=== PATIENT | male | born 1955 | race Caucasian/White ===

== ENCOUNTER 2023-02-27 06:23 | Day surgery (SDC) | payer MEDICARE, SELFPAY ==
[2023-02-27] VITALS (9 sets, daily range): BP systolic 125–153; BP diastolic 72–82; PULSE 70–84; RESP 15–18; TEMP 36.4–36.7; O2SAT 95–100; BMI 30.4
[2023-02-27] MEDS: BUPIVACAINE 0.5% 30 ML INJECTION (07:35)
--- NOTE | 2023-02-27 08:08 | P.ORPRC_ITS ---
Procedure Note Date of procedure: 02/27/23 Procedure: PREOPERATIVE DIAGNOSIS: 1. Left middle trigger digit POSTOPERATIVE DIAGNOSIS: 1. Left middle trigger digit PROCEDURE: 1. Left middle trigger (A1 maren) release SURGEON: Caleb Thompson MD. SUPERVISOR ERECTION SHOP: Lucinda Escobedo P.A.-C. Of note, an digital assistant was critical for this case to aid in patient positioning, tissue retraction, limb manipulation/positioning, and closure. ANESTHESIA: Local anesthetic IMPLANTS: None TOURNIQUET: 6 minutes at 200 mmHg COMPLICATIONS: None evident INDICATIONS: The patient is a pleasant 68-year-old male with history of left middle finger triggering. DESCRIPTION OF PROCEDURE: Patient was seen preoperatively and operative site was marked. Patient was then brought to the operating room placed in supine position on the OR table. A tourniquet was placed on the patient's left arm and left upper extremity was prepped and draped in usual sterile fashion. A surgical time-out was performed confirming patient name, procedure, and location. The subcutaneous tissues overlying the left middle finger A1 maren were in jected with combination of 1% lidocaine, 0.25% bupivacaine. Operative extremity was then elevated and exsanguinated with an Esmarch, and tourniquet was inflated to 200 mmHg. A skin incision measuring approximately 1 cm was made longitudinally over the A1 maren of the left middle finger. Blunt dissection was used to dissect through subcutaneous tissues. The underlying flexor tendons and A1 maren were identified and retractors were used to protect the neurovascular structures. The A1 maren was then released using a tenotomy scissor. After complete release of the A1 maren, the patient was asked to flex and extend their fingers, and no active triggering was noted. Tourniquet was then released and hemostasis was achieved with bipolar electrocautery. Total tourniquet time was 6 minutes. Wound was the irrigated with normal saline. Skin incision was closed with 4-0 nylon horizontal mattress sutures, and a sterile dressing was applied. Patient was then transferred to the recovery room in stable condition. POSTOPERATIVE PLAN: 1. Patient will be discharged to home day of surgery. 2. They were given instructions for wound care and finger range of motion exercises. 3. Return to the clinic for follow-up evaluation in 10-14 days for wound check and suture removal. Condition: stable Disposition: same day
== END 2023-02-27 08:22 | disposition home or self-care (01) ==
PROVIDERS: PCP Family Medicine; Visit Provider Orthopaedic Surgery
PROC: (CPT 26055; principal; 2023-02-27 07:30)
DX: M65.332 Trigger finger, left middle finger (principal)
CPT/HCPCS: 26055; J3490

== ENCOUNTER 2024-02-29 08:11 | Outpatient (CLI) | payer MEDICARE, SELFPAY ==
--- OUTSIDE RECORDS SUMMARY | 2024-03-02 03:36 | XMS_ITS | Clinical Summary ---
Author Organization [facility] er Address [address] [place] [address] Care Team Providers Care Trust Operations Assistant Name Role Phone None, Pcp Primary Care Provider Unavailabl e Allergies Active Allergy Reactions Criticality Noted Date Comments Cefuroxime 02/16/2007 Statins Other (see comments) 02/17/2024 jaden Muñoz Medications Medication Sig Dispensed Refills Start Date End Date Status finasteride (PROSCAR) 5 MG tablet Take 1 tablet every day by oral route. 12/30/2023 Active lisinopril (ZESTRIL) 20 MG tablet Take 1 tablet (20 mg total) by mouth 1 (one) time each day Active pantoprazole (PROTONIX) 40 MG EC tablet Take 1 tablet (40 mg total) by mouth 1 (one) time each day Active predniSONE (DELTASONE) 20 MG tablet TAKE TWO TABLETS BY MOUTH EVERY DAY FOR GOUT FLARE Active tamsulosin (FLOMAX) 0.4 MG 24 hr capsule Take 1 capsule by mouth daily as directed. 01/18/2024 Active venlafaxine XR (EFFEXOR-XR) 37.5 MG 24 hr capsule Take 1 capsule (37.5 mg total) by mouth 1 (one) time each day Active Encounters Date Type Department Care Team Description 02/17/2024 8:15 AM CDT Office Visit [facility] [address] [place] [address] Rosana Marshall MD Skin cancer screening (Primary Dx); Nevus; Seborrheic keratosis; Maria angioma from Last 3 Months Social History Tobacco Use Types Packs/Day Years Used Date Smoking Tobacco: Never Smokeless Tobacco: Never Tobacco Cessation:Counseling Given: Not Answered Sex and Gender Information Value Date Recorded Sex Assigned at Not on file Gender Identity Not on file Sexual Orientation Not on file Last Filed Vital Signs Vital Sign Reading Time Taken Comments Blood Pressure 151/82 02/17/2024 8:12 AM CDT Pulse 81 02/17/2024 8:10 AM CDT Temperature 36.7 ??C (98 ??F) 02/17/2024 8:10 AM CDT Respiratory Rate 20 02/17/2024 8:10 AM CDT Oxygen Saturation - - Inhaled Oxygen Concentration - - Weight - - Height - - Body Mass Index - - Plan of Treatment Health Maintenance Due Date Last Done Comments CT Colonography 1956 FIT-DNA 1956 Sigmoidoscopy 1955 iFOBT 1955 Pneumococcal Vaccine: 65+ Years (1 of 2 - PCV) 02/11/1962 Fall Risk Performed 02/11/1974 Medicare Annual Wellness Visit (AWV) 02/11/1974 Zoster Vaccines (1 of 2) 02/11/1975 COVID-19 Vaccine (3 - Pfizer risk series) 03/23/2021 02/23/2021, 02/02/2021 Colonoscopy 08/13/2022 08/13/2012 Colorectal Cancer Screening 08/13/2022 Influenza Vaccine (Season Ended) 2024 10/10/2019, 07/19/2018, 08/26/2017, Additional history exists DTaP,Tdap,and Td Vaccines (4 - Td or Tdap) 12/13/2031 12/12/2021, 05/22/2011, 04/09/2007, Additional history exists HPV Vaccines Aged Out No longer eligi ble based on patient's age to complete this topic Care Teams Trust Operations Assistant Relationship Specialty Start Date End Date None, Pcp [address] [facility] [place] [id number] PCP - General Cruise Guide 12/30/23
--- OUTSIDE RECORDS SUMMARY | 2024-03-02 03:36 | XMS_ITS | Data Portability ---
Author Organization [facility] Address [address] [place] [address] Care Team Providers Care Vibrator Operator Name Role Phone ENRIQUE JANET Referring Provider [phone] Assessment Encounter Date Assessment Date Assessment LastModified by Organization Details LastModified Time 09/03/2021 09/03/2021 66 yo M with history of nephrolithiasis presenting with recent episode of gross hematuria. [email or web address] Not available 09/03/2021 10:32:56 Plan of Treatment Reminders Order Date Submit Date Provider Last Modified By Organization Details Last Modified Time Details Appointments None recorde d. Lab PSA, serum or plasma 2023 024 [email or web address] [facility], [address], [place], [address], 4 16:39:12 PSA, total, serum or plasma 2023 024 [email or web address] [facility], [address], [place], [address], 4 11:24:14 PSA, serum or plasma 2023 024 [email or web address] [facility], [address], [place], [address], 4 10:27:09 PSA, serum or plasma 2022 023 [email or web address] [facility], [address], [place], [address], 3 12:02:41 urinaly sis, dipstic k 2022 023 [email or web address] [facility], [address], [place], [address], 3 12:02:45 PSA, total, serum or plasma 2022 023 [email or web address] [facility], [address], [place], [address], 3 09:29:38 PSA, total, serum or plasma 2022 023 teresita Drake, [address], [place], [address], 3 11:32:05 PSA, total, serum or plasma 2021 022 [facility], [address], [place], [address], 2 14:55:19 PSA, serum or plasma - Needed in late May. early Jun. 2021 022 [facility], [address], [place], [address], 2 07:49:15 PSA, serum or plasma 2021 022 [email or web address] Not available 2 10:00:57 stone analysi s panel 2021 022 [facility], [address], [place], [address], 2 11:09:31 urinaly sis, dipstic k 2021 022 [email or web address] Not available 10:00:57 urinaly sis, dipstic k 2020 021 [email or web address] Not available 1 10:10:17 Referral None recorde d. Procedures None recorde d. Surgeries None recorde d. Imaging MRI, prostat e, w/wo contras t 2023 024 [email or web address] [facility], [address], [address], [place], [address], 4 13:13:49 XR, kidney + ureter + bladder 2022 023 [email or web address] [facility] , [address], [place], [address], 3 13:11:50 CT, abdomen + pelvis, w/o contras t 2021 022 [email or web address] Not available 14:54:47 CT, abdomen + pelvis, w/o contras t 2021 022 [email or web address] Not available 2 16:39:29 CT, urogram 2020 021 [facility], [address], [place], [address], 2 11:06:39 Medication Orders finaste ride 5 mg tablet 2023 024 [email or web address], [address], [place], [place], [id number], 4 11:33:08 ciprofl oxacin 500 mg tablet [email or web address] [id number], [address] [place], [address], 2 11:20:45 Flomax 0.4 mg capsule 2020 022 [email or web address] [id number], [address] [facility], [place], [address], 2 16:13:35 Patient TargetsNo targets recorded. Patient Instructions Encounter Date Encounter Id Patient Instructions Last Modified By Organization Details Last Modified Time 10/15/2021 [id number] Kidney stone prevention is important given high recurrence rate. 50% or more of first time stone formers will have recurrence of kidney stones in the next 5-10 years. The majority of kidney stones are composed of calcium or uric acid. Stone prevention methods discussed includin. Drink more water - keep urine clear and increase daily urine output to 2.0-2.5 L/day 2. Incorporate more citrate - lemon juice to water 3. Monitor/restrict sodium intake (<2 g/day) 4. Get enough calcium (800-1200 mg/day) 5. Moderate oxalate consumption (peanuts, leafy green vegetables, berries, etc.) 6. Moderate animal protein intake (8-12 oz/day) [email or web address] Not available 10/14/2021 19:21:49 09/03/2021 [id number] Kidney stone prevention is important given high recurrence rate. 50% or more of first time stone formers will have recurrence of kidney stones in the next 5-10 years. The majority of kidney stones are composed of calcium or uric acid. Stone prevention methods discussed includin. Drink more water - keep urine clear and increase daily urine output to 2.0-2.5 L/day 2. Incorporate more citrate - lemon juice to water 3. Monitor/restrict sodium intake (<2 g/day) 4. Get enough calcium (800-1200 mg/day) 5. Moderate oxalate consumption (peanuts, leafy green vegetables, berries, etc.) 6. Moderate animal protein intake (8-12 oz/day) [email or web address] Not available 09/01/2021 12:21:11 Reason for Referral None Reported. Results Created Date Observation Date Name Description Value Unit Range Abnormal Flag LastModifiedBy Organization Detail LastModifiedTime 09/03/2009/03/2021 urina lysis , dipst ick pH-Status 5.5 Not Available [facility] [address], [place], [address], 09/03/2021 09:30:56 09/03/20 09/03/2021 urina lysis , dipst ick Nitrates-Sta tus negati ve Not Available [facility] [address], [place], [address], 09/03/2021 09:30:56 09/03/20 21 09/03/2021 urina lysis , dipst ick Blood-Status Modera te Not Available [facility] [address], [place], [address], 09/03/2021 09:30:56 09/03/20 21 09/03/2021 urina lysis , dipst ick Leuko-Status Negati ve Not Available [facility] [address], [place], [address], 09/03/2021 09:30:56 09/03/20 21 09/03/2021 urina lysis , dipst ick Specimen Type Voided Not Available [facility] [address], [place], [address], 09/03/2021 09:30:56 10/15/1910/19/2021 STONE JENNIE SIS source Commen t Not Available [facility] ([facility]) [address], [place], [address], 10/19/2021 11:09:31 10/15/1910/19/2021 STONE JENNIE SIS color Brown Not Available [facility] ([facility]) [address], [place], [address], 10/19/2021 11:09:31 10/15/1910/19/2021 STONE JENNIE SIS size 3x2 mm Not Available [facility] ([facility]) [address], [place], [address], 10/19/2021 11:09:31 10/15/19 22 10/19/2021 STONE JENNIE SIS weight 12 mg Not Available [facility] ([facility]) [address] [place], [address], 10/19/2021 11:09:31 10/15/19 22 10/19/2021 STONE JENNIE SIS composition Commen t Not Available [facility] ([facility]) [address] [place], [address], 10/19/2021 11:09:31 10/15/19 22 10/19/2021 STONE JENNIE SIS calcium oxalate monohydrate 100 % Not Available [facility] ([facility]) [address] [place], [address], 10/19/2021 11:09:31 10/15/19 22 10/19/2021 STONE JENNIE SIS calcium oxalate dihydrate TECHNICAL SERVICES LIBRARIAN Not Available [facility] ([facility]) [address] [place], [address], 10/19/2021 11:09:31 10/15/19 22 10/19/2021 STONE JENNIE SIS hydroxyapati te TECHNICAL SERVICES LIBRARIAN Not Available [facility] ([facility]) [address] [place], [address], 10/19/2021 11:09:31 10/15/19 22 10/19/2021 STONE JENNIE SIS carbonate apatite TECHNICAL SERVICES LIBRARIAN Not Available [facility] ([facility]) [address] [place], [address], 10/19/2021 11:09:31 10/15/19 22 10/19/2021 STONE JENNIE SIS cahpo4 (brushite) TECHNICAL SERVICES LIBRARIAN Not Available [facility] ([facility]) [address] [place], [address], 10/19/2021 11:09:31 10/15/19 22 10/19/2021 STONE JENNIE SIS calcium phosphate TECHNICAL SERVICES LIBRARIAN Not Available [facility] ([facility]) [address] [place], [address], 10/19/2021 11:09:31 10/15/19 22 10/19/2021 STONE JENNIE SIS calcium carbonate TECHNICAL SERVICES LIBRARIAN Not Available [facility] ([facility]) [address] [facility], [place], [address], 10/19/2021 11:09:31 10/15/19 22 10/19/2021 STONE JENNIE SIS mg nh4 PO4 (struvite) TECHNICAL SERVICES LIBRARIAN Not Available [facility] ([facility]) [address] [place], [address], 10/19/2021 11:09:31 10/15/19 22 10/19/2021 STONE JENNIE SIS mghpo4 (newberyite) TECHNICAL SERVICES LIBRARIAN Not Available [facility] ([facility]) [address] [place], [address], 10/19/2021 11:09:31 10/15/19 22 10/19/2021 STONE JENNIE SIS uric acid TECHNICAL SERVICES LIBRARIAN Not Available [facility] ([facility]) [address] [place], [address], 10/19/2021 11:09:31 10/15/19 22 10/19/2021 STONE JENNIE SIS uric acid dihydrate TECHNICAL SERVICES LIBRARIAN Not Available [facility] ([facility]) [address] [place], [address], 10/19/2021 11:09:31 10/15/19 22 10/19/2021 STONE JENNIE SIS ammonium acid urate TECHNICAL SERVICES LIBRARIAN Not Available [facility] ([facility]) [address] [place], [address], 10/19/2021 11:09:31 10/15/19 22 10/19/2021 STONE JENNIE SIS sodium acid urate TECHNICAL SERVICES LIBRARIAN Not Available [facility] ([facility]) [address] [place], [address], 10/19/2021 11:09:31 10/15/19 22 10/19/2021 STONE JENNIE SIS 2,8 dihydroxyade nine TECHNICAL SERVICES LIBRARIAN Not Available [facility] ([facility]) [address] [facility] [facility], [place], [address], 10/19/2021 11:09:31 10/15/19 22 10/19/2021 STONE JENNIE SIS xanthine TECHNICAL SERVICES LIBRARIAN Not Available [facility] ([facility]) [address] [facility], [place], [address], 10/19/2021 11:09:31 10/15/19 22 10/19/2021 STONE JENNIE SIS cystine TECHNICAL SERVICES LIBRARIAN Not Available [facility] ([facility]) [address] [facility], [place], [address], 10/19/2021 11:09:31 10/15/19 22 10/19/2021 STONE JENNIE SIS cholesterol TECHNICAL SERVICES LIBRARIAN Not Available [facility] ([facility]) [address] [facility], [place], [address], 10/19/2021 11:09:31 10/15/19 22 10/19/2021 STONE JENNIE SIS calcium bilirubinate TECHNICAL SERVICES LIBRARIAN Not Available [facility] ([facility]) [address] [facility], [place], [address], 10/19/2021 11:09:31 10/15/19 22 10/19/2021 STONE JENNIE SIS bilirubin TECHNICAL SERVICES LIBRARIAN Not Available [facility] ([facility]) [address] [facility], [place], [address], 10/19/2021 11:09:31 10/15/19 22 10/19/2021 STONE JENNIE SIS calcium palmitate TECHNICAL SERVICES LIBRARIAN Not Available [facility] ([facility]) [address] [facility], [place], [address], 10/19/2021 11:09:31 10/15/19 22 10/19/2021 STONE JENNIE SIS calcium stearate TECHNICAL SERVICES LIBRARIAN Not Available [facility] ([facility]) [address] [facility], [place], [address], 10/19/2021 11:09:31 10/15/19 22 10/19/2021 STONE JENNIE SIS triamterene TECHNICAL SERVICES LIBRARIAN Not Available [facility] ([facility]) [address] [facility], [place], [address], 10/19/2021 11:09:31 10/15/19 22 10/19/2021 STONE JENNIE SIS drug or metabolite TECHNICAL SERVICES LIBRARIAN Not Available [facility] ([facility]) [address] [facility], [place], [address], 10/19/2021 11:09:31 10/15/19 22 10/19/2021 STONE JENNIE SIS dried blood TECHNICAL SERVICES LIBRARIAN Not Available [facility] ([facility]) [address] [facility], [place], [address], 10/19/2021 11:09:31 10/15/19 22 10/19/2021 STONE JENNIE SIS cellular material TECHNICAL SERVICES LIBRARIAN Not Available [facility] ([facility]) [address] [facility], [place], [address], 10/19/2021 11:09:31 10/15/19 22 10/19/2021 STONE JENNIE SIS other component(s) TECHNICAL SERVICES LIBRARIAN Not Available [facility] ([facility]) [address] [facility] [facility], [place], [address], 10/19/2021 11:09:31 10/15/19 22 10/19/2021 STONE JENNIE SIS comment TECHNICAL SERVICES LIBRARIAN Not Available [facility] ([facility]) [address] [facility], [place], [address], 10/19/2021 11:09:31 10/15/19 22 10/19/2021 STONE JENNIE SIS comment TECHNICAL SERVICES LIBRARIAN Not Available [facility] ([facility]) [address] [facility], [place], [address], 10/19/2021 11:09:31 10/15/19 22 10/19/2021 STONE JENNIE SIS photo Commen t Not Available [facility] ([facility]) [address] [facility], [place], [address], 10/19/2021 11:09:31 10/15/19 22 10/19/2021 STONE JENNIE SIS comment: Thi bassett Not Available [facility] ([facility]) [address] [facility], [place], [address], 10/19/2021 11:09:31 10/15/19 22 10/19/2021 STONE JENNIE SIS please note: Thi bassett Not Available [facility] ([facility]) [address] [facility], [place], [address], 10/19/2021 11:09:31 10/15/19 22 10/19/2021 STONE JENNIE SIS disclaimer: Thi bassett Not Available [facility] ([facility]) [address] [facility], [place], [address], 10/19/2021 11:09:31 10/15/19 22 10/19/2021 STONE JENNIE SIS pdf . Not Available [facility] ([facility]) [address] [facility], [place], [address], 10/19/2021 11:09:31 10/15/19 22 10/15/2021 urina lysis , dipst ick pH-Status 5.5 Not Available [facility] [address], [place], [address], 10/15/2021 09:59:55 10/15/19 22 10/15/2021 urina lysis , dipst ick Nitrates-Sta tus negati ve Not Available [facility] [address], [place], [address], 10/15/2021 09:59:55 10/15/19 22 10/15/2021 urina lysis , dipst ick Blood-Status Small Not Available [facility] [address], [place], [address], 10/15/2021 09:59:55 10/15/19 22 10/15/2021 urina lysis , dipst ick Leuko-Status Trace Not Available [facility] [address], [place], [address], 10/15/2021 09:59:55 10/15/1910/15/2021 urina lysis , dipst ick Specimen Type Voided Not Available [facility] [address], [place], [address], 10/15/2021 09:59:55 10/15/1910/15/2021 PSA, serum or plasm a PSA, Total 12.9 ng/mL Not Available [facility] [address], [place], [address], 10/15/2021 09:59:35 07/06/2007/06/2023 urina lysis , dipst ick Color-Status Yellow Not Available [facility] [address], [place], [address], 07/06/2023 12:02:15 07/06/2007/06/2023 urina lysis , dipst ick pH-Status 6.0 Not Available [facility] [address], [place], [address], 07/06/2023 12:02:15 07/06/2007/06/2023 urina lysis , dipst ick Nitrates-Sta tus negati ve Not Available [facility] [address], [place], [address], 07/06/2023 12:02:15 07/06/2007/06/2023 urina lysis , dipst ick Blood-Status Trace Not Available [facility] [address], [place], [address], 07/06/2023 12:02:15 07/06/2007/06/2023 urina lysis , dipst ick Leuko-Status Negati ve Not Available [facility] [address], [place], [address], 07/06/2023 12:02:15 07/06/2007/06/2023 PSA, serum or plasm a PSA 4.2 ng/mL 0-4.0 Not Available [facility] [address], [place], [address], 07/06/2023 11:38:59 10/07/19 24 10/07/2023 PSA, serum or plasm a PSA 4.4ng/ ml 0-4.0 Not Available [facility] [address], [place], [address], 10/07/2023 10:08:48 12/30/19 24 12/30/2023 PSA, serum or plasm a PSA 4.6 ng/mL 0-4.0 NG/mL Not Available [facility] [address], [place], [address], 12/30/2023 16:38:51 09/03/20 21 09/03/2021 bladd er scan (PROC ) No observ ation record ed. BARCODE Not Available 09/03/2021 17:28:46 09/25/19 CT, urogr am No observ ation record ed. [facility] [address] [place] [address], [place], [address], 09/25/2021 11:06:39 10/16/19 22 10/15/2021 bladd er scan (PROC ) No observ ation record ed. BARCODE Not Available 10/16/2021 15:33:43 06/19/20 22 06/18/2022 CT, abdom en + pelvi s, w/o contr ast No observ ation record ed. Not Available 06/19/2022 21:50:12 07/06/20 23 07/06/2023 CT, abdom en + pelvi s, w/o contr ast EXAM: CT, ABDOME N + PELVIS , WITHOU T CONTRA ST LOCATI ON: [employer] [facility] DATE: 2022 INDICA TION: Nephro lithia sis. COMPAR SHANI: CT of the abdome n and pelvis perfor med 2021. TECHNI QUE: CT scan of the abdome n and pelvis was perfor med withou t IV contra st. Multip lanar reform ats were obtain ed. Dose reduct ion techni ques were used. CONTRA ST: None. FINDIN GS: LOWER CHEST: Kirby ry artery calcif icatio n. HEPATO BILIAR Y: Hepati c steato sis. PANCRE : Normal . SPLEEN : Normal . ADRENA L GLANDS : Normal . RIGHT KIDNEY /URETE R: There are two nonobs tructi ng stones in the upper pole of the right kidney , unchan ged, with the larges t measur ing 0.3 cm. No ureter al calcul i. No hydron ephros is. LEFT KIDNEY /URETE R: Puncta te 0.1 cm nonobs tructi ng stone in the upper pole of the left kidney was not visibl e on the previo us exam. No ureter al calcul i. No hydron ephros is. BLADDE R: No bladde r stones or masses are identi fied. BOWEL: Rectos igmoid anasto mosis. Postop erativ e change s are also noted in the ileoce adry region . Coloni c divert iculos is, withou t eviden ce for divert iculit is. No bowel obstru ction. LYMPH NODES: No lympha denopa thy. VASCUL ATURE: Modera te athero sclero tic aortoi liac calcif icatio n. PELVIC ORGANS : There is marked prosta tic enlarg ement. The prosta te gland measur es 6 cm transv erse. MUSCUL OSKELE JAVIER: There are two small fat-co ntaini ng midlin e ventra l hernia s in the suprau mbilic al region , unchan ged. Degene rative change s in the visual ized thorac olumba r spine. Mild compre ssion of the L2 verteb ral body, unchan ged. IMPRES DYAN: 1. Two small nonobs tructi ng stones in the right kidney are unchan ged. 2. A puncta te 0.1 cm stone in the upper pole of the left kidney was not visibl e on the previo us exam. 3. No ureter al calcul i or eviden ce for urinar y obstru ction. 4. Marked prosta tic enlarg ement. 5. Hepati c steato sis. This report was electr onical ly interp reted by: Isauro salgado MD on 2022 at 12:21 [facility] [address], [place], [address], 09/03/2023 15:27:06 10/19/19 24 10/17/2023 MRI, prost ate, w/wo contr ast No observ ation record ed. [email or web address] [facility] [address], [place], [address], 11/06/2023 09:04:06 Result Notes Documentation Provider Name and Address Organization Details Recorded Time Ct, Abdomen + Pelvis, W/o Contrast : EXAM: CT, ABDOMEN + PELVIS, WITHOUT CONTRAST LOCATION: [facility] DATE: 07/06/2023 INDICATION: Nephrolithiasis. COMPARISON: CT of the abdomen and pelvis performed 06/18/2022. TECHNIQUE: CT scan of the abdomen and pelvis was performed without IV contrast. Multiplanar reformats were obtained. Dose reduction techniques were used. CONTRAST: None. FINDINGS: LOWER CHEST: Coronary artery calcification. HEPATOBILIARY: Hepatic steatosis. PANCREAS: Normal. SPLEEN: Normal. ADRENAL GLANDS: Normal. RIGHT KIDNEY/URETER: There are two nonobstructing stones in the upper pole of the right kidney, unchanged, with the largest measuring 0.3 cm. No ureteral calculi. No hydronephrosis. LEFT KIDNEY/URETER: Punctate 0.1 cm nonobstructing stone in the upper pole of the left kidney was not visible on the previous exam. No ureteral calculi. No hydronephrosis. BLADDER: No bladder stones or masses are identified. BOWEL: Rectosigmoid anastomosis. Postoperative changes are also noted in the ileocecal region. Colonic diverticulosis, without evidence for diverticulitis. No bowel obstruction. LYMPH NODES: No lymphadenopathy. VASCULATURE: Moderate atherosclerotic aortoiliac calcification. PELVIC ORGANS: There is marked prostatic enlargement. The prostate gland measures 6 cm transverse. MUSCULOSKELETAL: There are two small fat-containing midline ventral hernias in the supraumbilical region, unchanged. Degenerative changes in the visualized thoracolumbar spine. Mild compression of the L2 vertebral body, unchanged. IMPRESSION: 1. Two small nonobstructing stones in the right kidney are unchanged. 2. A punctate 0.1 cm stone in the upper pole of the left kidney was not visible on the previous exam. 3. No ureteral calculi or evidence for urinary obstruction. 4. Marked prostatic enlargement. 5. Hepatic steatosis. This report was electronically interpreted by: Fahad Alvares MD on 07/06/2023 at 12:21 Rai Aguillon MD [address] [facility],[address], [place], [address], [facility] 09/03/2023 15:27:06 Problems Name Status Onset Date Resolution Date Notes Provider Name and Address Organization Details Recorded Time Slowing of urinary stream Active 07/19/20 12 788.62 : SLOW STREAM Not Available [facility] 03/01/2020 02:00:48 Prostate specific antigen above reference range Active 07/19/20 12 790.93 : ELEVATED PSA Not Available [facility] 03/01/2020 02:00:48 Problem Notes None recorded. Procedures Surgical History Date Name Laterality Status Provider Name and Address Organization Details Recorded Time 12/30/19 24 JACQUARD LOOM FIXER/blood draw completed Isabella vaz [facility] 12/30/2023 16:39:11 07/06/20 23 Blood Draw/JACQUARD LOOM FIXER/PSA RESULTS completed Isabella vaz [facility] 07/06/2023 11:50:21 10/15/19 22 Bladder Scan completed Nellie vaz [facility] 10/15/2021 10:07:18 10/15/19 22 Blood Draw/JACQUARD LOOM FIXER/PSA RESULTS completed Nellie vaz [facility] 10/15/2021 09:59:29 09/03/20 21 CystoscopyMale completed IVET KELLY [address] [facility],[address], [place], [address], [place] [facility] 09/03/2021 10:32:38 09/03/20 Macrobid post cysto completed IVET KELLY [address] [facility],[address], [place], [address], [place] [facility] 09/03/2021 10:31:57 09/03/20 Bladder Scan completed Nellie vaz [facility] 09/03/2021 09:39:18 08/14/20 Colonoscopy completed Rai Aguillon MD [address] [facility],[address], [place], [address], [facility] 12/17/2021 11:22:27 Imaging Results Imaging Date Name Status LastModified by Organiz ation Details LastModified Time 09/03/2021 bladder scan (PROC) completed [facility] Information not available 09/03/2021 17:28:46 09/25/2021 CT, urogram completed [facility] [address] [place] [address], [place], [address], 09/25/2021 11:06:39 10/15/2021 bladder scan (PROC) completed [facility] Information not available 10/16/2021 15:33:43 06/18/2022 CT, abdomen + pelvis, w/o contrast completed Information not available 06/19/2022 21:50:12 07/06/2023 CT, abdomen + pelvis, w/o contrast completed [facility] [address] [facility] [address], [place], [address], 09/03/2023 15:27:06 10/17/2023 MRI, prostate, w/wo contrast completed [email or web address] [facility] [address] [facility] [address], [place], [address], 11/06/2023 09:04:06 Procedure Notes None recorded. Medical Equipment None Reported. Allergies No known drug allergies Medications Name Sig Start Date Stop Date Status Note LastModified by Organization Details LastModified Time venlafaxine ER 37.5 mg capsule,ext ended release 24 hr TAKE ONE CAPSULE BY MOUTH EVERY DAY active Not Available Not Available No t Available valacyclovi r 1 gram tablet TAKE ONE TABLET BY MOUTH THREE TIMES A DAY 12/17 completed Not Available Not Available Not Available hydrocodone 5 mg-acetamin ophen 325 mg tablet TAKE 1-2 TABLETS BY MOUTH EVERY 4-6 HOURS NEEDED 09/03 completed Not Available Not Available Not Available lisinopril 20 mg tablet TAKE ONE TABLET BY MOUTH EVERY DAY active Not Available Not Available No t Available prednisone 20 mg tablet TAKE TWO TABLETS BY MOUTH EVERY DAY FOR GOUT FLARE active Not Available Not Available No t Available metronidazo le 500 mg tablet TAKE ONE TABLET BY MOUTH THREE TIMES A DAY FOR 7 DAYS 10/15 completed Not Available Not Available Not Available ciprofloxac in 250 mg tablet TAKE 2 TABLETS BY MOUTH TWICE A DAY (ALREADY RECEIVED 3 OF THE 500MG TABLETS) 09/03 completed Not Available Not Available Not Available ciprofloxac in 500 mg tablet TAKE ONE TABLET BY MOUTH EVERY 12 HOURS . 12/17 completed Not Available Not Available Not Available tamsulosin 0.4 mg capsule Take 1 capsule by mouth daily as directed. 2023 active Not Available Not Available Not Avai lable pantoprazol e 40 mg tablet,paul yed release TAKE ONE TABLET BY MOUTH EVERY DAY active Not Available Not Available No t Available finasteride 5 mg tablet Take 1 tablet every day by oral route. 2023 active Not Available Not Available Not Avai lable amoxicillin 875 mg-potassiu m clavulanate 125 mg tablet TAKE 1 TABLET BY MOUTH TWICE DAILY 06/18 completed Not Available Not Available Not Available oxycodone 5 mg tablet 10/15 completed Not Available Not Available Not Available Vitals Date Recorded Body height Body mass index (BMI) Body weight Provider Name and Address Organization Details Last Updated DateTime 06/18/2022 172.72 cm 30.7 kg/m2 99321.66 g Harjit [facility] 06/18/2022 14:08:19 Date Recorded Body height Body mass index (BMI) Body weight Provider Name and Address Organization Details Last Updated DateTime 10/13/2022 172.72 cm 30.7 kg/m2 92411.66 g Rai Aguillon MD [address] [facility],[address], [place], [address], [facility] 10/13/2022 10:37:16 Date Recorded Body height Body mass index (BMI) Body weight Provider Name and Address Organization Details Last Updated DateTime 07/06/2023 172.72 cm 29.2 kg/m2 42002.74 g Rai Aguillon MD [address] [place] [address],[address] [address], [facility] 07/06/2023 11:37:50 Date Recorded Body height Provider Name an d Address Organization Details Last Updated DateTime 10/07/2023 172.[address] [facility] 10/07/2023 09:52:58 Date Recorded Body height Body mass index (BMI) Body weight Provider Name and Address Organization Details Last Updated DateTime 12/30/2023 172.72 cm 29.2 kg/m2 63033.[address] [facility] 12/30/2023 16:38:33 Date Recorded Body height Body mass index (BMI) Body weight Provider Name and Address Organization Details Last Updated DateTime 09/03/2021 172.72 cm 31.9 kg/m2 [address]604.[address] [facility] 09/03/2021 09:27:40 Date Recorded Body height Body mass index (BMI) Body weight Provider Name and Address Organization Details Last Updated DateTime 10/15/2021 172.72 cm 31.9 kg/m2 [address]28.[address] [facility] 10/15/2021 09:58:45 Date Recorded Body height Body mass index (BMI) Body weight Provider Name and Address Organization Details Last Updated DateTime 12/17/2021 172.72 cm 32.7 kg/m2 53824.36 g Rai Aguillon MD [address] [place] [address],[address], [address], [facility] 12/17/2021 11:20:12 Social History Question Answer Notes LastModified by Organizat ion Details LastModified Time Tobacco Smoking Status Never Smoker Nellie Story null, [facility] 09/03/2021 09:38:16 What Is Your Level Of Alcohol Consumption? None [email or web address] Information not available 09/03/2021 What Is Your Level Of Caffeine Consumption? None [email or web address] Information not available 10/07/2023 Are You Currently Employed? Yes Information not available 06/18/2022 Recreational Drug Use No Information not available 06/18/2022 What Was The Date Of Your Most Recent Tobacco Screening? 12/30/2023 [email or web address] Information not available 12/30/2023 What Is Your Relationship Status? Information not available 06/18/2022 Do You Use Any Illicit Or Recreational Drugs? No Information not available 12/17/2021 Sex: Male Functional Status None recorded. Mental Status None recorded. Family History Relationship Description Onset Age of this Age Resolved Age Notes Mother Family history of Hypertension Medical History Condition Response High Blood Pressure Y Kidney Stones Y Depression N Lung Disease N GERD/Acid Reflux N Sexually Transmitted Infection N Cancer N High Cholesterol N Diabetes N Bleeding Disorder N Heart Disease N Immunizations Vaccine Type Date Status Provider Name and Address Organization Details Recorded Time COVID-19, mRNA, LNP-S, PF, 30 mcg/0.3 mL dose 02/23/2021 completed Rai Aguillon MD [address] [place] [address], [phone], [facility] 12/17/2021 11:20:26 COVID-19, mRNA, LNP-S, PF, 30 mcg/0.3 mL dose 02/02/2021 completed Rai Aguillon MD [address] [place] [address], [phone], [facility] 12/17/2021 11:20:26 influenza, unspecified formulation 06/14/2012 completed Rai Aguillon MD [address] [place] [address],[address], [address], [facility] 07/06/2023 11:37:53 Tdap 04/09/2007 completed Rai Aguillon MD [address] [place] [address],[address], [address], [facility] 07/06/2023 11:37:53 Tdap 05/22/2011 completed Rai Aguillon MD [address] [place] [address],[address], [address], [facility] 07/06/2023 11:37:53 Td (adult), 2 Lf tetanus toxoid, preservative free, adsorbed 12/13/2003 completed Rai Aguillon MD [address] [place] [address],[address] [place] [address], [address], [facility] 07/06/2023 11:37:53 Influenza, split virus, quadrivalent, PF 10/10/2019 completed Rai Aguillon MD [address] [place] [address],[address], [address], [facility] 07/06/2023 11:37:53 Influenza, split virus, quadrivalent, PF 06/13/2015 completed Rai Aguillon MD [address] [place] [address],[address], [address], [facility] 07/06/2023 11:37:53 Influenza, split virus, quadrivalent, PF 07/19/2018 completed Rai Aguillon MD [address] [place] [address],[address], [address], [facility] 07/06/2023 11:37:53 Influenza, split virus, quadrivalent, PF 08/26/2017 completed Rai Aguillon MD [address] [place] [address],[address] [place] [address], [address], [facility] 07/06/2023 11:37:53 Influenza, split virus, quadrivalent, PF 09/09/2016 completed Rai Aguillon MD [address] [place] [address],[address], [address], [facility] 07/06/2023 11:37:53 Pneumococcal conjugate PCV 13 12/12/2021 completed Saundra vaz, [facility] 08/12/2023 09:13:13 Td (adult), 2 Lf tetanus toxoid, preservative free, adsorbed 12/12/2021 completed Saundra Allar null, [facility] 08/12/2023 09:13:13 pneumococcal polysaccharide PPV23 02/02/2023 completed Saundra Smith null, [facility] 08/12/2023 09:13:42 Past Encounters Encounter ID Performer Location Encounter Start Date Encounter Closed Date Diagnosis/Indication Diagnosis SNOMED-CT Code [id number] Arley Archibald MD [facility] [address] [place], [place] [address] 09/03/2021 08:48:30 09/11/2021 09:13:53 Blood in urine 31554950 Kidney stone 95503101 Benign pro static hyperplasia with outflow obstruction [id number] IVET KELLY [facility] [address] [place], [place] [address] 10/15/2021 09:12:33 10/16/2021 08:57:07 Calculus of kidney and ureter 687299921 Blood in urine 30943459 Lower urin mindy tract symptoms due to benign prostatic hypertrophy 18407658580550 Kidney stone 21183174 [id number] Rai Aguillon MD [facility] [address] [place], [place] [address] 12/17/2021 11:06:30 12/20/2021 16:48:24 Prostate specific antigen above reference range 004576521 Lower urin mindy tract symptoms due to benign prostatic hypertrophy 45860442853558 Kidney stone 57064822 [id number] Rai Aguillon MD [facility] [address] [place], [place] [address] 06/18/2022 13:41:52 06/19/2022 16:09:29 Prostate specific antigen above reference range 797911071 Kidney stone 55914361 Lower urin mindy tract symptoms due to benign prostatic hypertrophy [id number] Rai Aguillon MD [facility] [address] [place] [address] 10/13/2022 10:32:30 10/18/2022 17:49:37 Prostate specific antigen above reference range 567537600 Kidney stone 74304637 Lower urin mindy tract symptoms due to benign prostatic hypertrophy [id number] Rai Aguillon MD [facility] [address] [place] [id number] 07/06/2023 11:33:00 07/08/2023 10:19:27 Prostate specific antigen above reference range 839753584 Kidney stone 71610613 Lower urin mindy tract symptoms due to benign prostatic hypertrophy [id number] Rai Aguillon MD [facility] [address] [place] [address] 10/07/2023 09:38:33 10/14/2023 15:50:42 Prostate specific antigen above reference range 766293751 Kidney stone 06977630 Lower urin mindy tract symptoms due to benign prostatic hypertrophy [id number] Rai Aguillon MD [facility] [address] [place] [address] 12/30/2023 15:43:43 01/04/2024 13:28:25 Prostate specific antigen above reference range 345987798 Kidney stone 85621482 Lower urin mindy tract symptoms due to benign prostatic hypertrophy 03705784630450 Health Concerns Section Related Observation LastModified by Organization Detai ls LastModified Time None Recorded Concern Status LastModified by Organization Details LastModified Time None Recorded Advance Directives Directive None Recorded Payers Encounter Date Sequence Insurance Name Policy Number Policy Robbins Covered Member ID Robbins Member ID Guarantor Name 12/30/2023 1 [place] [id number] Federico G Lidia [id number] Federico G Lidia 10/07/2023 1 [place] [id number] Federico G Lidia [id number] 1 Federico G Lidia 07/06/2023 1 [place] [id number] Federico G Lidia [id number] Federico G Lidia 10/13/2022 1 [facility] [id number] Federico G Lidia [id number] Federico G Lidia 06/18/2022 1 [facility] [id number] Federico G Lidia [id number] Federico G Lidia 12/17/2021 1 [facility] [id number] Federico G Lidia [id number] Federico G Lidia 10/15/2021 1 [facility] ([facility] [id number] Federico G Lidia [id number] Federico G Lidia 09/03/2021 1 [facility] [id number] Federico Murillo [id number] Federico Murillo Notes Date Note Type Note Provider Name and Address Organization Details Recorded Time 09/03/2021 text/html HPI Notes: Federico is 66 yo M referred for evaluation of gross hematuria. He had onset of gross hematuria in the middle of July. I reviewed records from his visit with wireless watcher, Dr. Brunson at [facility] on 07/29/21. He noted fruit punch colored urine that just lasted one day. No clots. No voiding symptoms at that time. He had some RLQ pain at the time as well. UA 07/29 with >100 RBC, nitrite and leuko esterase negative. Creatinine was 1.[address] a/p with contrast 07/29/21 (per report only, do not have access to images) notable for bilateral intrarenal calculi (3 on left, 2 on right) each measuring 2-3 mm. No hydro or ureteral obstruction. Moderate prostatomegaly. Today he reports mild intermittent bilateral flank pain for the past couple weeks and some burning at the tip of his penis with voiding. No other irritative voiding symptoms. Also with mild RLQ discomfort. He is pretty sure he is passing a kidney stone. He reports longstanding history of traces of blood in his urine with previous cystoscopy more than a decade ago. Urologic history includes history of kidney stones previously managed with conservative therapy, elevated PSA (4.5 in 2011) secondary to prostatitis; PSA normalized to 1.4 after treatment with abx. He was last seen by Dr. Delgado in 2013 for BPH. Reports baseline of weak stream and intermittency of stream. Stable. No longer on flomax. He reports a PSA in 2019 but is unsure what it was. Diagnosed with diverticulitis in 05/2021. No use of anticoagulation meds. No significant history of tobacco use Pt denies family history of malignancy UA today with moderate blood, neg for infection PVR = 71 mL Cysto today with 3 cm long prostate and enlarged median lobe with extension into bladder, no bladder pathology Arley Archibald MD [address] [facility],[address], [place], [address], [facility] 09/16/2021 16:13:40 10/15/2021 text/html HPI Notes: Federico is 66 yo M who returns for f/u of gross hematuria, kidney stones & BPH. 1. Kidney stones/Gross hematuria Gross hematuria + RLQ pain began in 07/2021. No additional voiding symptoms. No use of anticoagulation meds. No significant history of tobacco use. No fam hx of malignancy. Pt with h/o kidney stones previously managed with conservative therapy. Cysto 09/03/[address] Archibald was without bladder pathology. CT urogram 09/10/21 reviewed: - 4 mm right distal ureteral stone & mild hydroureter - 2.5 mm left UVJ stone, no hydro - Few bilateral 2-3 mm intrarenal stones. Bilateral renal cysts. No hydronephrosis, concerning renal masses or filling defects Pt seen by Dr. Aguillon in [place] 09/16/21 for continued RLQ pain and nausea. Planned for right URS/HLL, possible stent but he was able to pass the stones. Today he brings in 2 collected stones. Flank and abdominal pain has resolved, though he notes continued burning with urination. 2. BPH w/ LUTS Pt with baseline of weak/intermittency of stream. H/o elevated PSA with prostatitis (4.5 in 2011); PSA normalized to 1.4 after treatment with abx. He was started on flomax one month ago and notes improvement in his stream. Noted to have intravesical extension of median lobe of prostate on cysto with Dr. Archibald 08/2021. PSA today = 12.9 UA small blood, trace leuks Denies pelvic/perineal pain. USMAN: flat, smooth without firmness or nodules IVET KELLY [address] [place] [address],[address], [place], [address], [facility] [place] [facility] 10/15/2021 11:35:30 12/17/2021 text/html HPI Notes: 66 yo male with H/O kidney stones, prostatitis, and microscopic hematuria - previously seen by Dr. Restrepo and Dr. Delgado - CT Urogram (06/06/13) - small (1-2 mm) Bilateral renal calculi and small bilateral renal cysts. Cystoscopy (05/18/13) revealed mild BPH - no bladder lesions. He had gross hematuria in July 2021. Cystoscopy (09/03/[address] Archibald) revealed a 3 cm long prostate and enlarged median lobe with extension into bladder, no bladder pathology. He is on Flomax 0.4 mg daily. 09/16/21 - He presents for follow-up on kidney stones. He reports Right flank pain for the past week - nausea started today (also has RLQ pain) He still has intermittent gross hematuria. He voids every 2-3 hours during the day and 0-1x/night. He denies hesitancy and urgency. 12/17/21 - He presents for follow-up on PSA, kidney stones / 24 Hr urine study. He denies abdominal or flank pain. He voids every 3-4 hours during the day and 1-2/night. He denies slow stream or dysuria. PSA - 4.5 (2011) - 1.43 (2013) - 1.27 (02/28/17) - 1.67 (09/09/17) - 12.9 (11/14/21) - 2.77 (12/09/21) CT Urogram (09/10/21) - Right - 3 mm & 1 mm stones (mid-kidney) - 4 mm stone (ureter - iliacs) - Left - 2 mm stone (lower pole) - 2 mm stone UVJ) stone - 100% CaOx monohydrate 24 Hr urine (11/23/21) - low UO (1.86 L) - high Calcium (262 mg) - low pH (5.39) - normal - Oxalate (16 mg) - Citrate (650 mg) - Mg (87 mg) - Sodium (112 mg) - Phos (0.749) - Uric acid (0.610) Rai Aguillon MD [address] [place] [address],[address], [place], [address], [facility] [place] [facility] 12/17/2021 23:12:57 06/18/2022 text/html HPI Notes: 67 yo male with H/O kidney stones, prostatitis, and microscopic hematuria - previously seen by Dr. Restrepo and Dr. Delgado - CT Urogram (06/06/13) - small (1-2 mm) Bilateral renal calculi and small bilateral renal cysts. Cystoscopy (05/18/13) revealed mild BPH - no bladder lesions. He had gross hematuria in July 2021. Cystoscopy (09/03/[address] Archibald) revealed a 3 cm long prostate and enlarged median lobe with extension into bladder, no bladder pathology. He is on Flomax 0.4 mg daily. 09/16/21 - He presents for follow-up on kidney stones. He reports Right flank pain for the past week - nausea started today (also has RLQ pain) He still has intermittent gross hematuria. He voids every 2-3 hours during the day and 0-1x/night. He denies hesitancy and urgency. 12/17/21 - He presents for follow-up on PSA, kidney stones / 24 Hr urine study. He denies abdominal or flank pain. He voids every 3-4 hours during the day and 1-2/night. He denies slow stream or dysuria. 06/18/22 - He presents for follow-up PSA and kidney stones. He was treated for diverticulitis (x2) this summer. He denies abdominal or flank pain. He has no complaints with urination currently - no urgency or dysuria. He voids every 2-4 hours during the day and 1-2x/night. - CT scan (06/18/22) - Right - 3 mm & 2 mm stones (mid-kidney) - Left - no stones - Prostate - 100+ gm PSA - 4.5 (2011) - 1.43 (2013) - 1.27 (02/28/17) - 1.67 (09/09/17) - 12.9 (11/14/21) - 2.77 (12/09/21) - 3.68 (06/12/22) CT Urogram (09/10/21) - Right - 3 mm & 1 mm stones (mid-kidney) - 4 mm stone (ureter - iliacs) - Left - 2 mm stone (lower pole) - 2 mm stone UVJ) CT scan (06/18/22) - Right - 3 mm & 2 mm stones (mid-kidney) - Left - no stones - Prostate - 100+ gm stone - 100% CaOx monohydrate 24 Hr urine (11/23/21) - low UO (1.86 L) - high Calcium (262 mg) - low pH (5.39) - normal - Oxalate (16 mg) - Citrate (650 mg) - Mg (87 mg) - Sodium (112 mg) - Phos (0.749) - Uric acid (0.610) Rai Aguillon MD [address] [place] [address],[address], [place], [address], [facility] [place] [facility] 06/18/2022 18:40:08 10/13/2022 text/html HPI Notes: 67 yo male with H/O kidney stones, prostatitis, and microscopic hematuria - previously seen by Dr. Restrepo and Dr. Delgado - CT Urogram (06/06/13) - small (1-2 mm) Bilateral renal calculi and small bilateral renal cysts. Cystoscopy (05/18/13) revealed mild BPH - no bladder lesions. He had gross hematuria in July 2021. Cystoscopy (09/03/[address] Archibald) revealed a 3 cm long prostate and enlarged median lobe with extension into bladder, no bladder pathology. He is on Flomax 0.4 mg daily. 09/16/21 - He presents for follow-up on kidney stones. He reports Right flank pain for the past week - nausea started today (also has RLQ pain) He still has intermittent gross hematuria. He voids every 2-3 hours during the day and 0-1x/night. He denies hesitancy and urgency. 12/17/21 - He presents for follow-up on PSA, kidney stones / 24 Hr urine study. He denies abdominal or flank pain. He voids every 3-4 hours during the day and 1-2/night. He denies slow stream or dysuria. 06/18/22 - He presents for follow-up PSA and kidney stones. He was treated for diverticulitis (x2) this summer. He denies abdominal or flank pain. He has no complaints with urination currently - no urgency or dysuria. He voids every 2-4 hours during the day and 1-2x/night. 09/22/22 - He presents for follow-up on PSA and kidney stones. He denies abdominal or flank pain. He voids every 2-3 hours during the day and 1x/night. He denies urgency or dysuria. PSA - 4.5 (2011) - 1.43 (2013) - 1.27 (02/28/17) - 1.67 (09/09/17) - 12.9 (11/14/21) - 2.77 (12/09/21) - 3.68 (06/12/22) - 2.7 (09/24/22) CT Urogram (09/10/21) - Right - 3 mm & 1 mm stones (mid-kidney) - 4 mm stone (ureter - iliacs) - Left - 2 mm stone (lower pole) - 2 mm stone UVJ) CT scan (06/18/22) - Right - 3 mm & 2 mm stones (mid-kidney) - Left - no stones - Prostate - 100+ gm stone - 100% CaOx monohydrate 24 Hr urine (11/23/21) - low UO (1.86 L) - high Calcium (262 mg) - low pH (5.39) - normal - Oxalate (16 mg) - Citrate (650 mg) - Mg (87 mg) - Sodium (112 mg) - Phos (0.749) - Uric acid (0.610) Rai Aguillon MD [address] [place] [address],[facility] [address], [place], [address], [facility] [place] [facility] 10/13/2022 21:16:41 07/06/2023 text/html HPI Notes: 68 yo male with H/O kidney stones, prostatitis, and microscopic hematuria - previously seen by Dr. Restrepo and Dr. Delgado - CT Urogram (06/06/13) - small (1-2 mm) Bilateral renal calculi and small bilateral renal cysts. Cystoscopy (05/18/13) revealed mild BPH - no bladder lesions. He had gross hematuria in July 2021. Cystoscopy (09/03/[address] Archibald) revealed a 3 cm long prostate and enlarged median lobe with extension into bladder, no bladder pathology. He is on Flomax 0.4 mg daily. 09/22/22 - He presents for follow-up on PSA and kidney stones. He denies abdominal or flank pain. He voids every 2-3 hours during the day and 1x/night. He denies urgency or dysuria. 07/06/23 - He presents for follow-up on PSA and kidney stones. He voids every 2-3 hours during the day and 2-3x/night. He reports urgency. - PSA - 4.2 - UA - trace blood - no LE - CT scan (07/06/23) - Right - 2mm & 3mm stones (mid-kidney) - Left - no stones PSA - 4.5 (2011) - 1.43 (2013) - 1.27 (02/28/17) - 1.67 (09/09/17) - 12.9 (11/14/21) - 2.77 (12/09/21) - 3.68 (06/12/22) - 2.7 (09/24/22) - 4.2 (07/06/23) CT Urogram (09/10/21) - Right - 3 mm & 1 mm stones (mid-kidney) - 4 mm stone (ureter - iliacs) - Left - 2 mm stone (lower pole) - 2 mm stone UVJ) CT scan (06/18/22) - Right - 3 mm & 2 mm stones (mid-kidney) - Left - no stones - Prostate - 100+ gm CT scan (07/06/23) - Right - 2mm & 3mm stones (mid-kidney) - Left - no stones stone - 100% CaOx monohydrate 24 Hr urine (11/23/21) - low UO (1.86 L) - high Calcium (262 mg) - low pH (5.39) - normal - Oxalate (16 mg) - Citrate (650 mg) - Mg (87 mg) - Sodium (112 mg) - Phos (0.749) - Uric acid (0.610) Rai Aguillon MD [address] [facility],[address], [place], [address], [facility] [place] [facility] 07/06/2023 14:10:24 10/07/2023 text/html HPI Notes: 68 yo male with H/O kidney stones, prostatitis, and microscopic hematuria - previously seen by Dr. Restrepo and Dr. Delgado - CT Urogram (06/06/13) - small (1-2 mm) Bilateral renal calculi and small bilateral renal cysts. Cystoscopy (05/18/13) revealed mild BPH - no bladder lesions. He had gross hematuria in July 2021. Cystoscopy (09/03/[address] Archibald) revealed a 3 cm long prostate and enlarged median lobe with extension into bladder, no bladder pathology. He is on Flomax 0.4 mg daily. 09/22/22 - He presents for follow-up on PSA and kidney stones. He denies abdominal or flank pain. He voids every 2-3 hours during the day and 1x/night. He denies urgency or dysuria. 07/06/23 - He presents for follow-up on PSA and kidney stones. He voids every 2-3 hours during the day and 2-3x/night. He reports urgency. 10/07/23 - He presents for follow-up on Elevated PSA. He voids every 2-3 hours during the day and 0-1x/night. - PSA - 4.4 PSA - 4.5 (2011) - 1.43 (2013) - 1.27 (02/28/17) - 1.67 (09/09/17) - 12.9 (11/14/21) - 2.77 (12/09/21) - 3.68 (06/12/22) - 2.7 (09/24/22) - 4.2 (07/06/23) - 4.4 (10/07/23) CT Urogram (09/10/21) - Right - 3 mm & 1 mm stones (mid-kidney) - 4 mm stone (ureter - iliacs) - Left - 2 mm stone (lower pole) - 2 mm stone UVJ) CT scan (06/18/22) - Right - 3 mm & 2 mm stones (mid-kidney) - Left - no stones - Prostate - 100+ gm CT scan (07/06/23) - Right - 2mm & 3mm stones (mid-kidney) - Left - no stones stone - 100% CaOx monohydrate 24 Hr urine (11/23/21) - low UO (1.86 L) - high Calcium (262 mg) - low pH (5.39) - normal - Oxalate (16 mg) - Citrate (650 mg) - Mg (87 mg) - Sodium (112 mg) - Phos (0.749) - Uric acid (0.610) Rai Aguillon MD [address] [place] [address],[address], [place], [address], [facility] [place] [facility] 10/07/2023 23:12:34 12/30/2023 text/html HPI Notes: 68 yo male with H/O kidney stones, prostatitis, and microscopic hematuria - previously seen by Dr. Restrepo and Dr. Delgado - CT Urogram (06/06/13) - small (1-2 mm) Bilateral renal calculi and small bilateral renal cysts. Cystoscopy (05/18/13) revealed mild BPH - no bladder lesions. He had gross hematuria in July 2021. Cystoscopy (09/03/[address] Archibald) revealed a 3 cm long prostate and enlarged median lobe with extension into bladder, no bladder pathology. He is on Flomax 0.4 mg daily. 07/06/23 - He presents for follow-up on PSA and kidney stones. He voids every 2-3 hours during the day and 2-3x/night. He reports urgency. 10/07/23 - He presents for follow-up on Elevated PSA. He voids every 2-3 hours during the day and 0-1x/night. 12/30/23 - He presents for follow-up on Elevated PSA. He reports a slow stream. He voids every 2-3 hours during the day and 0-1x/night. - PSA - 4.6 PSA - 4.5 (2011) - 1.43 (2013) - 1.27 (02/28/17) - 1.67 (09/09/17) - 12.9 (11/14/21) - 2.77 (12/09/21) - 3.68 (06/12/22) - 2.7 (09/24/22) - 4.2 (07/06/23) - 4.4 (10/07/23) - 4.6 (12/30/23) Prostate MRI (10/17/23) - 92 cc - no suspicious lesion seen - no enlarged lymph nodes (large anterior lobe) CT Urogram (09/10/21) - Right - 3 mm & 1 mm stones (mid-kidney) - 4 mm stone (ureter - iliacs) - Left - 2 mm stone (lower pole) - 2 mm stone UVJ) CT scan (06/18/22) - Right - 3 mm & 2 mm stones (mid-kidney) - Left - no stones - Prostate - 100+ gm CT scan (07/06/23) - Right - 2mm & 3mm stones (mid-kidney) - Left - no stones stone - 100% CaOx monohydrate 24 Hr urine (11/23/21) - low UO (1.86 L) - high Calcium (262 mg) - low pH (5.39) - normal - Oxalate (16 mg) - Citrate (650 mg) - Mg (87 mg) - Sodium (112 mg) - Phos (0.749) - Uric acid (0.610) Rai Aguillon MD [address] [facility],[address], [place], [address], [facility] [place] [facility] 01/03/2024 11:39:14
--- OUTSIDE RECORDS SUMMARY | 2024-03-02 03:36 | XMS_ITS | Continuity of Care Document ---
Author Organization [facility], [facility] Address [address] [place] [address] Care Team Providers Care Inventory Representative Name Role Phone JANET DESOZUA Referring Provider Assessment No assessment recorded. Plan of Treatment Reminders Order Date Submit Date Provider Last Modified By Organization Details Last Modified Time Details Appointments None recorded. Lab PSA, serum or plasma 2023 024 [email or web address] 30 [facility], [address], [place], [address], 4 16:39:12 PSA, total, serum or plasma 2023 024 [email or web address] Noelle, [address], [place], [address], 4 11:24:14 Referral None recorded. Procedures None recorded. Surgeries None recorded. Imaging None recorded. Medication Orders finasteride 5 mg tablet 2023 024 [facility], [address], [place], [place], [id number], 4 11:33:08 Patient TargetsNo targets recorded. Patient InstructionsNo instructions recorded. Reason for Referral None Reported. Results Created Date Observation Date Name Description Value Unit Range Abnormal Flag LastModifiedBy Organization Detail LastModifiedTime 12/30/19 24 12/30/2023 PSA, serum or plasm a PSA 4.6 ng/mL 0-4.0 NG/mL Not Available [facility] [address], [place], [address], 12/30/2023 16:38:51 Result Notes None recorded. Problems Name Status Onset Date Resolution Date Notes Provider Name and Address Organization Details Recorded Time Slowing of urinary stream Active 07/19/20 12 788.62 : SLOW STREAM Not Available [facility] 03/01/2020 02:00:48 Prostate specific antigen above reference range Active 07/19/20 12 790.93 : ELEVATED PSA Not Available [facility] 03/01/2020 02:00:48 Problem Notes None recorded. Procedures Surgical History Date Name Laterality Status Provider Name and Address Organization Details Recorded Time 12/30/19 24 BILINGUAL KINDERGARTEN TEACHER/blood draw completed Isabella vaz [facility] 12/30/2023 16:39:11 07/06/20 23 Blood Draw/BILINGUAL KINDERGARTEN TEACHER[facility] 11:50:21 10/15/19 22 [facility] 10:07:18 10/15/19 22 Blood Draw/BILINGUAL KINDERGARTEN TEACHER/[facility] 09:59:29 09/03/20 21 CystoscopyMale completed IVET KELLY [address] [place] [address],[address], [address], [facility] 09/03/2021 10:32:38 09/03/20 21 Macrobid post cysto completed IVET KELLY [address] [place] [address], [phone], [facility] 09/03/2021 10:31:57 09/03/20 21 [facility]21 09:39:18 08/14/20 12 Colonoscopy completed Rai Aguillon MD [address] [place] [address],[address], [address], [facility] 12/17/2021 11:22:27 Imaging Results None recorded. Procedure Notes None recorded. Medical Equipment None [...] Not Available Not Avai lable amoxicillin 875 mg-inezu m clavulanate 125 mg tablet TAKE 1 TABLET BY MOUTH TWICE DAILY 06/18 completed Not Available Not Available Not Available oxycodone 5 mg tablet 10/15 completed Not Available Not Available Not Available Vitals Date Recorded Body height Body mass index (BMI) Body weight Provider Name and Address Organization Details Last Updated DateTime 12/30/2023 172.72 cm 29.2 kg/m2 67484.74 g Isabella Majano [facility] 12/30/2023 16:38:33 Social History Question Answer Notes LastModified by Organizat ion Details LastModified Time Tobacco Smoking Status Never Smoker Nellie Story [facility] 09/03/2021 09:38:16 What Is Your Level Of Alcohol Consumption? None [email or web address] Information not available 09/03/2021 What Is Your Level Of Caffeine Consumption? None [email or web address] Information not available 10/07/2023 Are You Currently Employed? Yes Information not available 06/18/2022 Recreational Drug Use No Information not available 06/18/2022 What Was The Date Of Your Most Recent Tobacco Screening? 12/30/2023 [email or web address] Information not available 12/30/2023 What Is Your [...] High Blood Pressure Y Kidney Stones Y Lung Disease N Depression N GERD/Acid Reflux N Sexually Transmitted Infection N Diabetes N Bleeding Disorder N Cancer N High Cholesterol N Heart Disease N Immunizations Vaccine Type Date Status Provider Name and Address Organization Details Recorded Time COVID-19, mRNA, LNP-S, PF, 30 mcg/0.3 mL dose 02/23/2021 completed Rai Aguillon MD [address] [place], [place] [phone], [facility] 12/17/2021 11:20:26 COVID-19, mRNA, LNP-S, PF, 30 mcg/0.3 mL dose 02/02/2021 completed Rai Aguillon MD [address] [place] [phone], [facility] 12/17/2021 11:20:26 influenza, unspecified formulation 06/14/2012 completed Rai Aguillon MD [address] [place] [address] [phone] [place] [address] Urology 07/06/2023 11:37:53 Tdap 04/09/2007 guillermo Aguillon MD [address] [place] [phone] [place] [address] Urology 07/06/2023 11:37:53 Tdap 05/22/2011 guillermo Aguillon, MD [address] [place] [address],[address], [address], [facility] 07/06/2023 11:37:53 Td (adult), 2 Lf tetanus toxoid, preservative free, adsorbed 12/13/2003 completed Rai Aguillon MD [address] [place] [address],[address] [place] [address], [phone], [facility] 07/06/2023 11:37:53 Influenza, split virus, quadrivalent, PF 10/10/2019 completed Rai Augillon MD [address] [place] [address],[address], [address], [facility] 07/06/2023 11:37:53 Influenza, split virus, quadrivalent, PF 06/13/2015 completed Rai Aguillon MD [address] [place] [address],[address], [address], [facility] 07/06/2023 11:37:53 Influenza, split virus, quadrivalent, PF 07/19/2018 completed Rai Aguillon MD [address] [place] [address],[address] [place] [address], [phone], [facility] 07/06/2023 11:37:53 Influenza, split virus, quadrivalent, PF 08/26/2017 completed Rai Aguillon MD [address] [place] [address],[address] [place] [address], [phone], [facility] 07/06/2023 11:37:53 Influenza, split virus, quadrivalent, PF 09/09/2016 completed Rai Aguillon MD [address] [place] [address],[address], [address], [facility] 07/06/2023 11:37:53 Pneumococcal conjugate PCV 13 12/12/2021 completed Saundra Allar null, [facility] 08/12/2023 09:13:13 Td (adult), 2 Lf tetanus toxoid, preservative free, adsorbed 12/12/2021 completed Saundra Allar null, [facility] 08/12/2023 09:13:13 pneumococcal polysaccharide PPV23 02/02/2023 completed Saundra Allar null, [facility] 08/12/2023 09:13:42 Past Encounters Encounter ID Performer Location Encounter Start Date Encounter Closed Date Diagnosis/Indication Diagnosis SNOMED-CT Code [id number] Rai Aguillon MD [facility] [address] [place] [place] [id number] 12/30/2023 15:43:43 01/04/2024 13:28:25 Prostate specific antigen above reference range 103112542 Kidney stone 78407249 Lower urin mindy tract symptoms due to benign prostatic hypertrophy 15218141917006 Health Concerns Section Related Observation LastModified by Organization Detai ls LastModified Time None Recorded Concern Status LastModified by Organization Details LastModified Time None Recorded Payers Encounter Date Sequence Insurance Name Policy Number Policy Robbins Covered Member ID Robbins Member ID Guarantor Name 12/30/2023 1 [place] - MEDICARE COST [id number] Federico Murillo [id number] Federico Murillo Notes Date Note Type Note Provider Name and Address Organization Details Recorded Time 12/30/2023 text/html HPI Notes: 68 yo male [...] Uric acid (0.610) Rai Aguillon MD [address] [facility],[address], [place], [address], [facility] [place] [facility] 01/03/2024 11:39:14
--- OUTSIDE RECORDS SUMMARY | 2024-03-02 03:36 | XMS_ITS | Clinical Summary ---
Author Organization [facility] Address [place], [place] [address] Care Team Providers Care Ui Software Engineer Name Role Phone Constanza Brunson MD Primary Care Provider [phone] Allergies Active Allergy Reactions Criticality Noted Date Comments Cefuroxime 02/16/2007 Medications Medication Sig Dispensed Refills Start Date End Date Status venlafaxine (EFFEXOR) 37.5 mg tablet Take 1 tablet by mouth every morning. 2 a day 0 05/28/2010 Active pantoprazole (PROTONIX) 40 mg tablet Take 1 tablet by mouth once daily. PRN 0 05/28/2010 Active tamsulosin (FLOMAX) 0.4 mg capsuleIndications:B enign prostatic hyperplasia, unspecified whether lower urinary tract symptoms present Take 1 capsule by mouth once daily after a meal. 180 capsule 1 10/05/2017 Active oxyCODONE (ROXICODONE) 5 mg capsuleIndications:Kym nevesney stones Take 1 Capsule (5 mg) by mouth every 4 hours if needed for Pain. 12 capsule. 09/16/2021 Active oxyCODONE (ROXICODONE) 5 mg immediate release tabletIndications:Angelito ellsworth stone Take 1 Tablet (5 mg) by mouth every 4 hours if needed for Pain. 12 Tablet 09/17/2021 Active Active Problems Problem Noted Date Diagnosed Date Hyperopia of both eyes with astigmatism and pres byopia 03/02/2017 Nuclear senile cataract of both eyes 03/02/2017 Screen for colon cancer 06/27/2011 Overview: Colonoscopy 06/2011 normal repeat in 10 years Adjustment disorder with mixed anxiety and depre ssed mood 12/31/2007 Anxiety state, unspecified 11/19/2007 Tear film insufficiency, unspecified 04/13/2007 Other and unspecified hyperlipidemia 02/17/2007 Allergic rhinitis, cause unspecified 02/17/2007 Unspecified essential hypertension 02/16/2007 DIVERTICULITIS, COLON W/O HEM 09/15/2000 Gouty Arthropathy 07/31/2000 REFLUX, ESOPHAGEAL APPENDICITIS, ACUTE W/PERITONEAL ABSCESS Resolved Problems Problem Noted Date Diagnosed Date Resolved Date Hypermetropia 02/11/2008 02/19/2009 Retinal hemorrhage 10/29/2006 7 Overview: L peripheral Immunizations Name Administration Dates Next Due Tdap 04/09/2007 Family History Medical History Relation Name Comments Genetic Other 1 allergies-none Genetic Other 2 Dad- CAD, HTN, CVA, laryngeal CA, ~Mom- HTN ~MGF- CAD~MGM- alzheimer's~PGF-~PGM- Other Paternal Grandmother glaucom a Relation Name Status Comments Other 1 Other 2 Paternal Grandmother Social History Tobacco Use Types Packs/Day Years Used Date Smoking Tobacco: Never Smokeless Tobacco: Never Tobacco Cessation:Counseling Given: Yes Alcohol Use Standard Drinks/Week Comments No 0 (1 standard drink = 0.6 oz pur e alcohol) Alcoholic Drinks/day: 0 Sex and Gender Information Value Date Recorded Sex Assigned at Not on file Gender Identity Not on file Sexual Orientation Not on file Obstetrics History Last Filed Vital Signs Vital Sign Reading Time Taken Comments Blood Pressure 167/82 09/16/2021 2:45 PM AERONAUTICAL RESEARCH ENGINEER Pulse 85 09/16/2021 2:45 PM AERONAUTICAL RESEARCH ENGINEER Temperature 36.7 ??C (98.1 ??F) 10/05/2017 9:29 AM CS T Respiratory Rate 16 01/19/2004 12:00 AM CDT Oxygen Saturation 100% 09/16/2021 2:45 PM AERONAUTICAL RESEARCH ENGINEER Inhaled Oxygen Concentration - - Weight 98 kg (216 lb) 10/05/2017 9:29 AM AERONAUTICAL RESEARCH ENGINEER Height 168.3 cm (5' 6.25) 11/19/2007 8:34 AM CS T Body Mass Index 34.6 11/19/2007 8:34 AM AERONAUTICAL RESEARCH ENGINEER Plan of Treatment Health Maintenance Due Date Last Done Comments Depression screening for age 12+ 1968 BMI (ht and wt on same day) for age 18+ 02/11/1974 Hepatitis C screening for ag e 18-79 02/11/1974 Zoster (shingles) series for age 50+ (1 of 2) 02/11/2006 Lipids for age 45-75 02/01/2013 02/02/2008, 04/09/2007, 02/17/2007, Additional history exists Tetanus booster 04/09/2017 04/09/2007 Pneumococcal series for age 65+ (1 of 1 - PCV) 02/11/2021 Colonoscopy through age 75 06/27/202106/27, 06/27/2011, 06/27/2011 COVID-19 vaccine series (3 - 2022-24 season) 2023 02/23/2021, 02/02/2021 Influenza for age 65+ 05/15/2024 Tdap Completed 04/09/2007 Procedures Procedure Name Priority Date/Time Associated Diagnosis Comments LIPID PANEL Routine 02/02/2008 8:29 AM CDT Hyperlipidemia from Last 3 Months or Most Recently Relevant to Health Maintenance Results * (ABNORMAL) LIPID PANEL (02/02/2008 8:29 AM CDT) CHOLESTEROL,TOTAL 166 110 - 199 mg/dL [facility] TRIGLYCERIDES 159(H) <150 mg/dL [facility] HDL CHOLESTEROL 41 >40 mg/dL [facility] CHOL/HDL RATIO 4.05 <4.51 [facility] LDL CHOLESTEROL 93 <131 mg/dL [facility] PATIENT STATUS Fasting [facility] Blood specimen (specimen) BLOOD SPECIMEN / Unknown 02/02/2008 8:29 AM CDT 02/02/2008 8:26 AM CDT Cayetano Langley MD CHEMISTRY [facility] [address] [place] [address] from Last 3 Months or Most Recently Relevant to Health Maintenance Care Teams Ui Software Engineer Relationship Specialty Start Date End Date Constanza Brunson MD [address] [place] [address] PCP - General Internal Medicine 01/19/17
--- OUTSIDE RECORDS SUMMARY | 2024-03-02 03:36 | XMS_ITS | Encounter Summary ---
Author Organization [facility] Address [address] [place] [address] Care Team Providers Care Machining Manager Name Role Phone None, Pcp Primary Care Provider Unavailabl e Reason for Visit * Reason Comments Suspicious Skin Lesion Spot on back Encounter Details Date Type Department Care Team (Late st Contact Info) Description 02/17/2024 8:15 AM CDT Office Visit [facility] [address] [place] [address] Rosana Marshall MD [address] [place] [address] Skin cancer screening (Primary Dx); Nevus; Seborrheic keratosis; Maria angioma Social History Tobacco Use Types Packs/Day Years Used Date Smoking Tobacco: Never Smokeless Tobacco: Never Tobacco Cessation:Counseling Given: Not Answered Sex and Gender Information Value Date Recorded Sex Assigned at Not on file Gender Identity Not on file Sexual Orientation Not on file documented as of this encounter Last Filed Vital Signs Vital Sign Reading Time Taken Comments Blood Pressure 151/82 02/17/2024 8:12 AM CDT Pulse 81 02/17/2024 8:10 AM CDT Temperature 36.7 ??C (98 ??F) 02/17/2024 8:10 AM CDT Respiratory Rate 20 02/17/2024 8:10 AM CDT Oxygen Saturation - - Inhaled Oxygen Concentration - - Weight - - Height - - Body Mass Index - - documented in this encounter Patient Instructions * Patient Instructions* Rosana Marshall MD - 02/17/2024 8:15 AM CDT Face looks great today. A++. Keep up the good work Avoid all tanning bed use. Wear protective clothing, a broad-rimmed hat, and sunglasses when outdoors. Cover exposed skin with a broad-spectrum sunscreen that is SPF 30 or higher. Some good sun screens include Vanicream and Neutrogena. documented in this encounter Progress Notes * Rosana Marshall MD - 02/17/2024 8:15 AM CDT CC: Skin cancer screening exam HPI: Federico Murillo is a pleasant 69 y.o. male who presents today for a skin cancer screening examination. He has no previous history of skin cancer or family history of melanoma but has multiple brown scalyspots on his back that his urged him to get taken a look at today. He has had extensive sun exposure in his youth and spends much of his time in the summer outdoors fishing. ROS: Negative. Past Medical History: See HPI Family History: See HPI Objective: Physical Exam: Constitutional: Awake, alert, in no acute distress, appropriate affect Eyes: Normal conjunctiva, no periorbital edema or rash Skin: Cedillo type 2. A waist up skin examination was performed today. There are multiple benign-appearing 2 to 8 mm brown macules consistent with nevi. There are red-purple papules consistent with maria angiomas. There are multiple waxy stuck on appearing papules consistent with benign seborrheic keratoses. Assessment/Plan Skin cancer screening Avoid all tanning bed use. Wear protective clothing and broad-rimmed hats. Use a broad-spectrum SPF 30 or higher sunscreen. Multiple nevi The ABCDE criteria for melanoma was reviewed with the patient. None of the patient's nevi reach theclinical threshold for biopsy. I recommend continued sun protection, self-skin examinations, and observation. Should any of the patient's nevi change in size, color, texture, or shape or develop symptoms such as itching or bleeding, I recommend a return visit for reassessment. Maria angiomas Solar lentigines Seborrheic keratoses The benign nature of the skin conditions was reviewed. Recommend continued observation at this time. Should signs or symptoms change with regards to skin condition,recommend a return visit for further evaluation. I personally spent a total of 30 minutes reviewing the medical record, obtaining history and performing examination, counseling, placing orders, and completing documentation/charting. This document was prepared with voice recognition software; while reviewed prior to signature, it may contain unintended minor voice recognition errors. documented in this encounter Plan of Treatment Not on file documented as of this encounter Visit Diagnoses Diagnosis Skin cancer screening- Primary Screening for malignant neoplasm of the skin Nevus Benign neoplasm of skin, site unspecified Seborrheic keratosis Maria angioma documented in this encounter Care Teams Machining Manager Relationship Specialty Start Date End Date None, Pcp [address] [place] [address] PCP - General Sewer Repairer 12/30/23 documented as of this encounter
== END 2024-02-29 08:12 | disposition home or self-care (01) ==
LOC: NFLDREF 03-02 03:34
PROVIDERS: PCP Family Medicine; Referring Provider Family Medicine; Visit Provider Family Medicine
DX: R73.03 Prediabetes (principal); E78.5 Hyperlipidemia, unspecified
CPT/HCPCS: 80053; 80061

== ENCOUNTER 2025-03-20 09:50 | Outpatient (CLI) | payer MEDICARE, SELFPAY | END 2025-03-20 09:51 | disposition home or self-care (01) | LOC: NFLDREF 03-23 02:24 | PROVIDERS: PCP Family Medicine; Referring Provider Family Medicine; Visit Provider Family Medicine | DX: I10 Essential (primary) hypertension (principal); R73.03 Prediabetes; Z13.6 Encounter for screening for cardiovascular disorders | CPT/HCPCS: 80053; 80061 ==